=== PATIENT | male | born 2000 | race Caucasian/White ===

== ENCOUNTER 2018-04-10 00:37 | Emergency (ER) | payer MEDICAID, OTHER ==
[~2018-04-10] VITALS: Ht 172.7 cm; Wt 75.8 kg
[2018-04-10 03:34] VITALS: BP 136/69
== END 2018-04-10 05:22 | disposition home or self-care (01) ==
LOC: ER 00:37
DX: S62.304A Unspecified fracture of fourth metacarpal bone, right hand, initial encounter for closed fracture (principal); S62.306A Unspecified fracture of fifth metacarpal bone, right hand, initial encounter for closed fracture; Z91.013 Allergy to seafood; W19.XXXA Unspecified fall, initial encounter; Y93.51 Activity, roller skating (inline) and skateboarding; Y92.89 Other specified places as the place of occurrence of the external cause; Y99.8 Other external cause status
CPT/HCPCS: 29125; 73130; 99284; Z7610; A4565

== ENCOUNTER 2018-04-23 10:59 | Emergency (ER) | payer MEDICAID, OTHER ==
[~2018-04-23] VITALS: Ht 175.3 cm; Wt 75.0 kg
[2018-04-23 11:07] VITALS: BP 118/71
== END 2018-04-23 16:39 | disposition home or self-care (01) ==
LOC: ER 10:59
DX: S06.0X0A Concussion without loss of consciousness, initial encounter (principal); V00.131A Fall from skateboard, initial encounter; Y93.89 Activity, other specified; Y92.89 Other specified places as the place of occurrence of the external cause; Y99.8 Other external cause status; Z91.013 Allergy to seafood
CPT/HCPCS: 99282